=== PATIENT | female | born 1960 | race African-American/Black ===

== ENCOUNTER 2017-06-27 14:02 | Outpatient (CLI) | payer OTHER ==
--- NOTE | 2017-06-27 14:44 | RAD ---
LEFT SHOULDER THREE VIEWS: History: Left shoulder pain. FINDINGS/IMPRESSION: No fracture or dislocation is seen of the shoulder. Minimal degenerative change. AC joint is normally aligned. There is evidence of an abnormal density in the lower right chest although incompletely imaged on thi s exam. Recommend further evaluation of the chest. Code T POS: [facility]
--- NOTE | 2017-06-27 15:07 | RAD ---
THREE VIEWS OF THE RIGHT SHOULDER: Indication: Right shoulder pain. FINDINGS: There is prominent mass like opacities seen within the right infrahilar region in the region of the r ight middle lobe. This may be related to massive cardiomegaly, pericardial mass or a right middle lob e lung mass. This is incompletely characterized on the current exam. There is a small focus of calcif ication seen overlying the greater tuberosity measuring 3.7 mm, suspicious for focal region of calcif ic stenosis. AC joint and glenohumeral joint otherwise appears within normal limits. IMPRESSION: Large right infrahilar mass. Findings may reflect a right infrahilar pulmonary mass; however, a peric ardial mass or posterior esophageal mass possibly related to a dilated esophagus is not excluded. Mas sive cardiomegaly is not entirely excluded. Recommend dedicated CT of the thorax utilizing IV contras t for additional characterization. Calcific tendinosis of the right shoulder. Code T POS: [facility]
== END 2017-06-27 14:03 | disposition home or self-care (01) ==
LOC: SCSRAD 14:02
PROVIDERS: ATTEND Family Medicine
DX: M25.512 Pain in left shoulder (principal); M25.511 Pain in right shoulder; R91.8 Other nonspecific abnormal finding of lung field

== ENCOUNTER 2017-07-03 09:18 | Outpatient (CLI) | payer OTHER ==
[~2017-07-03 09:18] MED LIST: Iopamidol 370 76% 100 ML VIAL ONE
--- NOTE | 2017-07-03 11:18 | CT ---
CT CHEST WITH CONTRAST: Date: 07/03/17 HISTORY: Abnormal finding on shoulder x-ray. COMPARISON: Right shoulder radiographs dated 06/27/17. FINDINGS: There is colonic interposition with large bowel connecting to the fundus of the stomach and extending into the neck. There is marked heterogeneity of the thyroid gland with multiple hypodensities and so me calcifications. No significant pericardial effusion. Heart size is normal. No adenopathy. Upper abdomen is unremarkable. There are sub-4 mm right upper lobe pulmonary nodules. No pneumothorax. No large effusion. There is a lso a nodule in the anterior segment of right lower lobe measuring just under 5.0 mm. IMPRESSION: 1. Abnormality seen on the radiograph corresponds to colonic interposition for esophagus replacement . 2. Multiple small, sub-5 mm pulmonary nodules. Option CT follow-up in 12 months could be performed. 3. Marked heterogeneity and enlargement of the right lobe of the thyroid gland with multiple hypoden sities, some containing calcifications. Nonemergent follow-up ultrasound recommended. POS: [facility]
== END 2017-07-03 09:19 | disposition home or self-care (01) ==
LOC: SCSCT 09:18
PROVIDERS: ATTEND Family Medicine
DX: R91.8 Other nonspecific abnormal finding of lung field (principal)
CPT/HCPCS: 71260

== ENCOUNTER 2017-07-10 10:33 | Outpatient (CLI) | payer OTHER | END 2017-07-10 10:34 | disposition home or self-care (01) | LOC: BICMAMMO 10:33 | PROVIDERS: ATTEND Family Medicine | DX: R92.8 Other abnormal and inconclusive findings on diagnostic imaging of breast (principal); N63.20 Unspecified lump in the left breast, unspecified quadrant; N63.10 Unspecified lump in the right breast, unspecified quadrant | CPT/HCPCS: 77066; G0279 ==

== ENCOUNTER 2017-08-09 05:52 | Day surgery (SDC) | payer OTHER ==
[2017-08-08 14:18] VITALS: BMI 25.7
--- NOTE | 2017-08-09 07:44 | HP ---
SHORT STAY HISTORY AND PHYSICAL DATE OF ADMISSION: 08/09/2017 HISTORY OF PRESENT ILLNESS: This is a 56-year-old female referred to me by Dr. Rayshawn Jhaveri for evaluation of chronic reflux. The patient has had reflux for more than 10 years. The patient underwent EGD. The patient gives history of dysphagia of recent onset. The dysphagia occurs mostly with meat and bread. She feels the food gets stuck to esophagus and has to drink some water to make it go down. She also has had regurgitation of sour tasting fluid off and on. The patient does not smoke or drink alcohol. She is very thin built and really has no exacerbating factors except acid reflux. The patient is undergoing EGD because of the above reason. ALLERGIES: None. SOCIAL HISTORY: The patient does not smoke or drink alcohol. MEDICAL ILLNESSES: 1. Chronic acid reflux. 2. Hyperlipidemia. 3. Depression. 4. Migraine. 5. Goiter. 6. History of surgery for ingestion and possible intestine transmission as childhood. PHYSICAL EXAMINATION: GENERAL: Appears comfortable. VITAL SIGNS: Pulse is 70, blood pressure 120/70. HEENT: Conjunctivae clear. CARDIOVASCULAR SYSTEM AND LUNGS: Within normal limits. ABDOMEN: Soft to palpate. No organomegaly. No tenderness. No masses. ADMITTING DIAGNOSES: A 56-year-old female with chronic acid reflux and dysphagia. The patient comes for an EGD. MTDD
[2017-08-09] MEDS ORDERED: PROPOFOL 200 MG/20 ML VIAL ONE (11:34)
[2017-08-09] MEDS ORDERED: Lidocaine 1% PF 5 ML VIAL ONE (11:34)
--- NOTE | 2017-08-09 14:58 | OP ---
DATE OF SURGERY: 08/09/2017 OPERATIVE PROCEDURES: 1. Esophagogastroduodenoscopy. 2. Esophageal dilation with Roberson size 48 Malaysian dilator. PREOPERATIVE DIAGNOSES: A 56-year-old -[place] female with chronic acid reflux and dysphagia . The patient is undergoing esophagogastroduodenoscopy. POSTOPERATIVE DIAGNOSES: 1. 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 2. Questionable narrowing, just below the gastroesophageal junction. 3. Normal stomach and duodenum. PROCEDURE NOTE: The patient was placed on left lateral position and was given sedation by Anesthesia Department. A [employer]ax video gastroscope under direct vision was passed down the oropharynx, past the upper esophageal sphincter into the upper stomach. The patient had a very short segment of esophage al lumen. The patient apparently has had colonic interposition many years before lye ingestion. The esophageal mucosa stops around, I would say 30 cm from colon. Subsequently, colonic lumen was seen and there is some ____. There is no definite stricture seen at the interposition. Anatomy is somewh at difficult to understand. The scope finally was advanced to stomach and retroflexed to visualize t he fundus and cardia. No lesions in fundus or cardia. The gastric body, gastric antrum, no patholog y seen. The duodenal bulb and descending duodenum, no pathology seen. The patient did have some ret ained food material in the stomach. The scope was withdrawn. A Roberson size 58-Mal[place] dilator passe d down the upper esophageal sphincter at the distance maybe about 25 to 30 cm. DISCHARGE PLANNING: This is a 56-year-old -[place] female with dysphagia and chronic acid re flux. The patient has history of lye ingestion in childhood and has had a colonic interposition betw een the stomach and esophagus. The esophageal segment is only about 10-12 cm long. The mucosa actua lly ____. DISCHARGE RECOMMENDATIONS: 1. Resume medicines as before. 2. We will plan to obtain upper GI series to get a good idea of the anatomy.
== END 2017-08-09 09:25 | disposition home or self-care (01) ==
LOC: SDC 05:52
PROVIDERS: ATTEND Internal Medicine Gastroenterology
PROC: 0D758ZZ Dilation of Esophagus, Via Natural or Artificial Opening Endoscopic (ICD-10-PCS; principal; 2017-08-09)
DX: K21.9 Gastro-esophageal reflux disease without esophagitis (principal); E78.5 Hyperlipidemia, unspecified; F32.9 Major depressive disorder, single episode, unspecified; G43.909 Migraine, unspecified, not intractable, without status migrainosus; R13.10 Dysphagia, unspecified; Z87.891 Personal history of nicotine dependence; Z91.011 Allergy to milk products; Z88.5 Allergy status to narcotic agent; Z98.890 Other specified postprocedural states
CPT/HCPCS: J2001; J2704

== ENCOUNTER → 2017-08-10 | Day surgery (SDC) | payer OTHER ==
[2017-08-09 09:51] VITALS: BMI 25.7
[~2017-08-10] MED LIST changes: -Iopamidol 370 76% 100 ML VIAL ONE; +Lidocaine 1% PF 5 ML VIAL ONE
--- NOTE | 2017-08-10 14:10 | ULT ---
ULTRASOUND GUIDED FINE NEEDLE ASPIRATION OF DOMINANT RIGHT THYROID NODULE: Date: 08/10/17 HISTORY: Multinodular thyroid gland with a larger dominant heterogeneous nodule in the right lobe of the thyro id gland. Fine needle aspiration of the larger nodule was requested. TECHNIQUE: After informed consent was obtained, the patient was placed in the sonography table in the supine pos ition. Limited sonographic evaluation of the right aspect of the neck was performed. An area overlyin g the right thyroid nodule was marked and then meticulously prepped and draped in the usual sterile f ashion. Skin and subcutaneous tissues were infiltrated with buffered 1% lidocaine for local anesthesia. Utilizing concurrent real-time ultrasound guidance, a total of four fine needle aspiration specimens were obtained with a 25 gauge needle. Hemostasis was achieved with direct pressure. A dry, sterile dr essing was placed at puncture site. The patient tolerated the procedure well and without immediate complication. IMPRESSION: 1. Technically successful ultrasound guided fine needle aspiration of a right thyroid nodule. 2. Large heterogeneous nodule right lobe of the thyroid gland measuring approximately 3.0 cm in maxi mal dimensions with a few additional much smaller heterogeneous nodules in the right lobe of the thyr oid gland. POS: [facility]
== END ==
LOC: ULT 09:55
PROVIDERS: ATTEND Otolaryngology Plastic Surgery within the Head & Neck
PROC: BG44ZZZ Ultrasonography of Thyroid Gland (ICD-10-PCS; principal; 2017-08-10)
PROC: 07D13ZX Extraction of Right Neck Lymphatic, Percutaneous Approach, Diagnostic (ICD-10-PCS; principal; 2017-08-10)
DX: E04.2 Nontoxic multinodular goiter (principal); M41.9 Scoliosis, unspecified; Z88.5 Allergy status to narcotic agent; Z88.6 Allergy status to analgesic agent
CPT/HCPCS: 10022; 76942; 88173; J2001

== ENCOUNTER 2017-08-25 13:02 | Outpatient (CLI) | payer OTHER ==
--- NOTE | 2017-08-25 14:10 | RAD ---
CERVICLA SPINE 3 VIEWS: Date: 08/25/17 HISTORY: Neck pain and left shoulder pain. FINDINGS: There is loss of cervical lordosis with straightening of the cervical spine. Degenerative changes are present. No fracture, subluxation, or bony destruction is identified. IMPRESSION: Cervical spondylosis. POS: [facility]
--- NOTE | 2017-08-25 15:02 | MRI ---
MRI OF THE LEFT SHOULDER WITHOUT CONTRAST: Date: 08/25/17 INDICATION: Neck pain and left shoulder pain. TECHNIQUE: Routine MR images were obtained of the left shoulder. FINDINGS: There is a partial thickness articular surface tear involving the undersurface of the supraspinatus i nvolving approximately 50% of the tendon thickness. This partial thickness involves the near entirety of the undersurface of the supraspinatus and measures approximately 1.3 x 2.2 cm. The AC joint demonstrates moderate degenerative change. No muscular atrophy is evident. The biceps an chor complex appears intact. The anterior inferior glenohumeral labroligamentous complex appears intact. The biceps tendon is loca jose de jesus. No muscular atrophy is evident. IMPRESSION: 1. Partial thickness undersurface tear involving the supraspinatus and involving approximately 50% o f the tendon thickness. 2. Moderate AC joint osteoarthrosis. POS: [facility]
== END 2017-08-25 13:03 | disposition home or self-care (01) ==
LOC: SCSMRI 13:02
PROVIDERS: ATTEND Orthopaedic Surgery
DX: M25.512 Pain in left shoulder (principal); M54.2 Cervicalgia; M47.892 Other spondylosis, cervical region; M19.012 Primary osteoarthritis, left shoulder; M75.102 Unspecified rotator cuff tear or rupture of left shoulder, not specified as traumatic
CPT/HCPCS: 72040